=== PATIENT | female | born 1995 | race Caucasian/White ===

== ENCOUNTER → 2016-11-13 | Outpatient (CLI) | payer OTHER ==
--- NOTE | 2016-11-13 11:43 | REP ---
PELVIC SONOGRAPHY: HISTORY: Dyspareunia, postcoital bleeding. Uterine hypertrophy. FINDINGS: Transabdominal and transvaginal scanning are performed. Uterine dimensions are slightly increased at 9.5 x 3.8 x 5.7 cm. The endometrial echo 0.9 cm thick. The uterus is somewhat retroverted. There is a trace of fluid adjacent to the left ovary in the cul-de-sac. No focal uterine mass is seen. Urinary bladder patel are smooth. Transvaginal dimensions of the left ovary are 3.8 x 2.4 x 3.0 cm. There is a dominant follicle in the left ovary measuring 2.4 x 1.6 x 1.9 cm. Normal Doppler flow is seen with resistive index 0.62. The right ovary has a normal appearance with dimensions of 3.6 x 1.4 x 3.0 cm. Its Doppler flow is normal with resistive index 0.65. IMPRESSION: Somewhat retroverted uterus. Otherwise normal pelvic sonography. Signed by Yeison Montoya MD 11/13/2016 03:34 P
== END ==
LOC: M RAD 09:32
PROVIDERS: ATTEND Nurse Practitioner
DX: N85.4 Malposition of uterus (principal); N94.10 Unspecified dyspareunia; N93.0 Postcoital and contact bleeding; N85.2 Hypertrophy of uterus